=== PATIENT | female | born 1950 | race Caucasian/White ===

== ENCOUNTER 2023-10-15 07:32 | Inpatient (IN) | payer MEDICARE, OTHER, SELFPAY ==
[2023-09-20 12:09] VITALS: BMI 44.2
[2023-09-20 14:11] LABS: Hematocrit 40.4 % (37.0-47.0); Hemoglobin 13.5 g/dL (12.0-16.0); Mean Corp Hgb Conc. 33.4 g/dL (33.0-37.0); Mean Corpuscular Hgb 30.4 pg (27.0-31.0); Platelet Count 224 10^3/uL (130-400); Red Blood Cell Count 4.44 10^6/uL (4.20-5.40); Red Cell Dist. Width 13.4 % (11.5-14.5); White Blood Cell Count 7.2 10^3/uL (4.8-10.8)
[2023-09-20 14:23] LABS: ALT (SGPT) 22 U/L (0-35); AST (SGOT) 27 U/L (14-36); Albumin 4.8 g/dl (3.5-5.0); Alkaline Phosphatase 76 U/L (38-126); Blood Urea Nitrogen 14 mg/dl (7-17); Carbon Dioxide 25 mmol/L (22-30); Chloride 98 mmol/L (98-107); Estimated Creatinine Clearance 59 ml/min; Glucose 160 mg/dl (70-99); Potassium 3.5 mmol/L (3.5-5.1); Sodium 133 mmol/L (135-145); Total Bilirubin 0.7 mg/dl (0.2-1.3); Total Protein 7.2 g/dl (6.3-8.2); eGFR 59.86
[2023-09-21 10:12] LABS: Glycohemoglobin (HgbA1c) 6.2 % (4.0-5.6)
[2023-10-09 10:32] VITALS: BMI 44.2
[2023-10-15] VITALS (10 sets, daily range): BP systolic 111–160; BP diastolic 57–87; PULSE 89; O2SAT 90; BMI 44.2
[2023-10-15] MEDS: TYLENOL 650 MG PO ×5 (07:54→23:42)
[2023-10-15] MEDS: CELEBREX 200 MG PO (07:54)
[2023-10-15 08:11] LABS: Glucose - Point of Care 139 mg/dl (70-99)
[2023-10-15] MEDS: NORMOSOL-R/PLASMALYTE-A 1000 IV ×2 (08:12→11:51)
[2023-10-15 11:24] LABS: Glucose - Point of Care 114 mg/dl (70-99)
--- NOTE | 2023-10-15 11:35 | W.DS.TRANS ---
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
-
Discharge Instructions:
Discharge Diagnosis/Procedures [facility] 10/15/23
Diet Diabetic, Carb Controlled
Activity With Walker
Driving Restrictions No driving
Bathing Restrictions OK to Shower
Other Services PT
Instructions:
Stand-Alone Forms:
Changes to Home Medications: Yes
Discharge Medications:
DC Medications w/original date entered in [employer]
ascorbic acid (vitamin C) 500 mg tablet (Vitamin C) 500 mg PO BID Supplement 11/09/21
cholecalciferol (vitamin D3) 25 mcg (1,000 unit) capsule (Vitamin D3) 25 mcg PO DAILY Supplement 11/09/21
furosemide 40 mg tablet 40 mg PO DAILY Fluid retention/Swelling 11/09/21
levothyroxine 100 mcg tablet (Synthroid) 100 mcg PO DAILY Thyroid 11/09/21
metformin 750 mg tablet,extended release 24 hr 750 mg PO HS Diabetes 11/09/21
omeprazole 20 mg capsule,delayed release 20 mg PO DAILY 11/09/21
escitalopram oxalate 10 mg tablet 10 mg PO DAILY 10/09/23
mecobalamin (vitamin B12) 1,000 mcg chewable tablet 1,000 mcg PO DAILY 10/09/23
metoprolol succinate 50 mg tablet,extended release 24 hr 50 mg PO HS 10/09/23
mupirocin 2 % topical ointment 1 applic topical BID 10/09/23
rivaroxaban 20 mg tablet (Xarelto) 20 mg PO DAILY 10/09/23
rosuvastatin 5 mg tablet 5 mg PO HS 10/09/23
spironolactone 25 mg tablet 25 mg PO HS 10/09/23
zinc acetate 50 mg (zinc) capsule 50 mg PO DAILY 10/09/23
acetaminophen 500 mg capsule 1,000 mg (2 x 500 mg) PO QID #0 caps 10/15/23
cefadroxil 500 mg capsule 500 mg PO BID infection prevention #14 caps 10/15/23
docusate sodium 100 mg capsule (Colace) 100 mg PO BID stool softner #1 cap 10/15/23
gabapentin 300 mg capsule 300 mg PO DAILY 10/15/23
magnesium hydroxide 400 mg/5 mL oral suspension (Milk of Magnesia) 30 ml PO HS PRN Constipation #1 mL 10/15/23
ondansetron 4 mg disintegrating tablet 4 mg PO Q6H PRN n/v #20 tabs 10/15/23
oxycodone 5 mg tablet 5 mg PO Q6H PRN 1 tab moderate pain, 2 tabs severe pain #30 tabs 10/15/23
rivaroxaban 10 mg tablet (Xarelto) 10 mg PO DAILY Blood clot prevention/tx #3 tabs 10/15/23
sennosides 8.6 mg tablet (Senokot) 17.2 mg (2 x 8.6 mg) PO BID laxative #2 tabs 10/15/23
telmisartan 80 mg-amlodipine 5 mg tablet 1 tab PO DAILY #0 tabs 10/15/23
Home Medication Changes
rivaroxaban 20 mg tablet (Xarelto) 20 mg PO DAILY 10/09/23�-HOLD
cefadroxil 500 mg capsule 500 mg PO BID infection prevention #14 caps 10/15/23�
ondansetron 4 mg disintegrating tablet 4 mg PO Q6H PRN n/v #20 tabs 10/15/23�
oxycodone 5 mg tablet 5 mg PO Q6H PRN 1 tab moderate pain, 2 tabs severe pain #30 tabs 10/15/23�
rivaroxaban 10 mg tablet (Xarelto) 10 mg PO DAILY Blood clot prevention/tx #3 tabs 10/15/23�
Pending Results: No
[2023-10-15] MEDS: ROXICODONE 5 MG PO (11:59)
[2023-10-15 12:41] LABS: Glucose - Point of Care 141 mg/dl (70-99)
--- NOTE | 2023-10-15 12:54 | PTCARENOTE ---
1235: Patient arrived to 2S. Full head to toe assessment completed. L knee aqaucell intact with a scant amount of drainage. B/L LE neurovascular assessment completed. IVF running per order. Patient on 2L with SpO2 greater than 92%. Call ramires within
reach and bed in lowest position.
[2023-10-15] MEDS: NOVOLOG FLEXPEN-MODERATE RESISTANCE SC (13:30)
[2023-10-15] MEDS: NEURONTIN 300 MG PO ×2 (13:31→19:52)
[2023-10-15] MEDS: LEXAPRO 10 MG PO (13:31)
[2023-10-15] MEDS: PROTONIX 40 MG PO (13:31)
[2023-10-15] MEDS: NOVOLOG FLEXPEN 4 UNITS SC ×2 (13:32→17:22)
[2023-10-15] MEDS: DILAUDID 0.5 MG IV (14:16)
[2023-10-15 16:49] LABS: Glucose - Point of Care 236 mg/dl (70-99)
[2023-10-15] MEDS: ANCEF 5 IV (17:21)
[2023-10-15] MEDS: XARELTO 10 MG PO (17:21)
[2023-10-15] MEDS: NOVOLOG FLEXPEN-MODERATE RESISTANCE 3 UNITS SC (17:22)
[2023-10-15] MEDS: BACTROBAN 2% OINTMENT 1 APPLIC NASAL (19:51)
[2023-10-15] MEDS: COLACE 100 MG PO (19:52)
[2023-10-15] MEDS: SENOKOT 17.2 MG PO (19:52)
[2023-10-15] MEDS: TOPROL XL 50 MG PO (22:01)
[2023-10-15] MEDS: CRESTOR 5 MG PO (22:01)
[2023-10-15] MEDS: ROXICODONE 10 MG PO (22:07)
[2023-10-15] MEDS: GLUCOPHAGE XR EXTENDED RELEASE 750 MG PO (22:10)
[2023-10-15 22:13] LABS: Glucose - Point of Care 191 mg/dl (70-99)
[2023-10-16 00:17] VITALS: BP 140/64
[2023-10-16] MEDS: ANCEF 5 IV (01:23)
[2023-10-16] MEDS: TYLENOL 650 MG PO ×2 (03:15→07:42)
[2023-10-16] MEDS: ROXICODONE 10 MG PO ×2 (03:23→07:41)
[2023-10-16 03:44] VITALS: BP 132/65
[2023-10-16] MEDS: SYNTHROID 100 MCG PO (05:49)
[2023-10-16] MEDS: PROTONIX 40 MG PO (07:41)
[2023-10-16] MEDS: COLACE 100 MG PO (07:41)
[2023-10-16] MEDS: SENOKOT 17.2 MG PO (07:41)
[2023-10-16 07:42] LABS: Glucose - Point of Care 154 mg/dl (70-99)
[2023-10-16] MEDS: LEXAPRO 10 MG PO (07:42)
[2023-10-16] MEDS: NOVOLOG FLEXPEN 4 UNITS SC ×2 (07:42→11:38)
[2023-10-16] MEDS: BACTROBAN 2% OINTMENT 1 APPLIC NASAL (07:42)
[2023-10-16] MEDS: NEURONTIN 300 MG PO (07:42)
[2023-10-16] MEDS: NOVOLOG FLEXPEN-MODERATE RESISTANCE 1 UNITS SC ×2 (07:43→11:38)
[2023-10-16 07:53] VITALS: BP 130/63
[2023-10-16 09:36] VITALS: BP 148/59; PULSE 70
[2023-10-16 10:44] VITALS: BP 134/64; PULSE 69; O2SAT 95
[2023-10-16 11:18] LABS: Glucose - Point of Care 178 mg/dl (70-99)
[2023-10-16 11:35] VITALS: BP 103/57
--- NOTE | 2023-10-16 11:44 | CM ---
Reviewed the chart notes and spoke with the patient at the bedside. The patient resides alone in a two story home with one step to enter. The patient has a rolling walker, cane, and shower grab bar. The patient reports no VN or SNF in the past.
The patient confirmed her pharmacy of choices is the [facility]. The patient's daughter will be stay for the next couple of days with the patient. The patient's grandson brought a bed down to first level for the patient. Patient will
be doing outpatient therapy and has arranged for transportation through family and friends. Patient's daughter will provide transportation home. CM continues to be available to patient/family and is monitoring medical plan for needs at discharge.
Plan: Discharge to home with outpatient therapy.
--- NOTE | 2023-10-16 12:20 | W.PN.ORTHO ---
Today's Communication / Plan
-
d/c
Assessment
.
Distal Motor Intact: Yes
Dressing:
Clean, dry and intact.
Assessment:
[id number] on tele-Xarelto
Plan
.
Surgery / Date: Dar[facility] Thomas 10/15/23
DVT Prophylaxis: Other (Xarelto)
Activity:
Out of bed.
PT/OT
Discharge Plan: Home w/ Outpatient PT
Subjective
.
.:
Patient resting comfortably.
Vital Signs and Labs
.
Vital Signs and Labs:
Lab Results
09/20/23 12:18
09/20/23 12:18
Temp Pulse Resp BP Pulse Ox
97.9 F 69 19 103/57 98
10/16/23 11:35 10/16/23 11:35 10/16/23 11:35 10/16/23 11:35 10/16/23 11:35
Non-invasive Hgb result: 10.6
Physical Exam
-
HEENT: No pallor, cyanosis, or jaundice. Throat clear.
NECK: Supple. No JVD.
RESPIRATORY: Lungs clear to auscultation.
CVS: S1, S2 normal. RRR.� No murmur, rub or gallop.
ABDOMEN: Soft, non-tender. No distension. BS+/normal.
EXTREMITIES: strength equal, no calf pain with palpation
STATION TENDER: AOx3. No focal deficits. cyber defense incident responder grossly intact
== END 2023-10-16 13:10 | disposition home or self-care (01) | DRG 470 ==
LOC: 2 SOUTH 07:32
PROVIDERS: ADMITTING PHYSICIAN Specialist; FAMILY PHYSICIAN Student in an Organized Health Care Education/Training Program
PROC: 0SRD0J9 Replacement of Left Knee Joint with Synthetic Substitute, Cemented, Open Approach (ICD-10-PCS; 2023-10-15)
DX: M17.12 Unilateral primary osteoarthritis, left knee (principal); Z68.41 Body mass index [BMI] 40.0-44.9, adult; E66.01 Morbid (severe) obesity due to excess calories; E03.9 Hypothyroidism, unspecified; E11.9 Type 2 diabetes mellitus without complications; I10 Essential (primary) hypertension; I48.91 Unspecified atrial fibrillation; E78.5 Hyperlipidemia, unspecified; K21.9 Gastro-esophageal reflux disease without esophagitis; D64.89 Other specified anemias; Z79.01 Long term (current) use of anticoagulants; Z79.84 Long term (current) use of oral hypoglycemic drugs; Z79.899 Other long term (current) drug therapy; Z96.651 Presence of right artificial knee joint
CPT/HCPCS: 36415; 73560; 80053; 82962; 83036; 85027; 87070; 97110; 97162; 97166; 97530; 97535; C1713; C1776

== ENCOUNTER → 2023-10-26 13:43 | Outpatient (REF) | payer MEDICARE, OTHER, SELFPAY | LOC: RAD 13:43 | PROVIDERS: ATTENDING PHYSICIAN Physician Assistant; FAMILY PHYSICIAN Student in an Organized Health Care Education/Training Program | DX: M79.662 Pain in left lower leg (principal) | CPT/HCPCS: 93971 ==